=== PATIENT | female | born 1995 | race Caucasian/White ===

== ENCOUNTER 2025-03-28 23:25 | Emergency (ER) | payer OTHER, SELFPAY ==
[2025-03-28 23:29] VITALS: BP 121/91; PULSE 102; RESP 16; TEMP 37.1; O2SAT 99; BMI 28.7
[2025-03-28 23:32] LABS: Hematocrit 32.7 % (37.0-47.0); Hemoglobin 10.6 g/dL (12.2-16.2); Immature Granulocytes % 0.2 %; Mean Corpuscular HGB Conc 32.4 g/dL (31.8-35.4); Mean Corpuscular Hemoglobin 26.7 pg (27.0-31.2); Mean Corpuscular Volume 82.4 fl (81-99); Nucleated Red Blood Cells % 0 %; Platelet Count 244 K/mm3 (142-424); Red Blood Count 3.97 M/mm3 (4.20-5.40); Red Cell Distribution Width-SD 42.2 fL; White Blood Count 6.1 K/mm3 (4.8-10.8)
--- NOTE | 2025-03-28 23:40 | XR_ITS ---
PROCEDURE INFORMATION: Exam: XR Chest Exam date and time: 03/29/2025 12:08 AM Age: 29 years old Clinical indication: Other: Tachy; Additional info: Tachy, sz like activity TECHNIQUE: Imaging protocol: Radiologic exam of the chest. Views: 1 view. COMPARISON: No relevant prior studies available. FINDINGS: Lungs: Unremarkable. No consolidation. Pleural spaces: Unremarkable. No pleural effusion. No pneumothorax. Heart/Mediastinum: Unremarkable. No cardiomegaly. Bones/joints: Unremarkable. IMPRESSION: No acute findings.
--- NOTE | 2025-03-28 23:40 | HMH.EDGENADL ---
Discharge Plan Disposition Patient Disposition: Home, Self-Care Condition: Good Prescriptions Prescriptions: New ondansetron 4 mg tablet,disintegrating 4 mg PO Q6H PRN (Reason: nausea and vomiting) Qty: 10 0RF Referrals Follow up/Referrals: Clarence Lee MD [Staff Physician, Family Practice] - See instructions Referral Note: establish care, substance use Activity Restrictions/Add. Instructions Additional Instructions/Restrictions: You were evaluated in the ER and are believed to be appropriate for discharge at this time. personal support worker the prescriptions that were [facility] for you from [facility]. Take those as directed. Take the newly prescribed ondansetron (Zofran) if needed for nausea and vomiting. Drink plenty of water, Gatorade, Pedialyte to stay hydrated. Continue taking all home medications as previously prescribed. Make an appointment with your primary care doctor for reevaluation in 1 to 2 days. Follow-up with the MAT clinic. Ask your primary care doctor for a referral to neurology. Return to the ER with any new, worsening, or otherwise concerning symptoms. Clinical Impressions Clinical Impression: Seizure-like activity, Substance use disorder, Nausea & vomiting Instructions Patient Instructions: DI for Seizure Disorder in Adults, DI for Seizure (Not Epilepsy/Seizure Disorder), DI for Seizure Disorder in Child Print Language Print Language: South African Discharge ED Provider: Nayla Watts Adult HPI General Chief complaint: Seizure Stated complaint: Seizure Time Seen by Provider: 03/28/25 23:26 Mode of Arrival: EMS Source of Information: Patient Description of Symptoms (Recalled from ER Triage Doc. 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 History of Present Illness HPI narrative: 29-year-old female with history of substance abuse, self-reported recent relapse of amphetamine use, reported history of seizures previously on Lamictal presents to the ER with bodyaches, nausea, vomiting, cough, congestion, and self-reported seizure-like activity. Patient reports she was at [facility] in [place] because she relapsed on meth and they changed her meds from lamictal to vraylar. She was discharged earlier today and is worried that she is not tolerating it well. She reports adverse effects of abilify and latuda reporting her eyes roll back and she kind of shakes but it's not a full seizure like she sometimes has. She is aware of these happening when they occur and immediately is awake and back to normal after. She reports this is what happened to her prior to arrival. It lasted approximately one minute. She reports being out of her suboxone for 5 days and having 3 days of cough, congestion, nausea, vomiting, body aches. No known fevers. She has no abdominal pain, no chest pain or difficulty breathing, no numbness, tingling, or weakness. Separately, patient would like to have a test completed, she states she took 1 at home about a month ago that was positive but reports at her doctor it was not negative so she just is not sure. I reached out to [facility] in [place] and spoke with the data warehouse consultant to understand this patient's recent admission. He reports patient was admitted on 03/26 for methamphetamine use relapse. While admitted she received Suboxone doses including a dose this morning at 8 AM despite patient reporting she's not had it in multiple days. He reports that the patient was continued on a prescription for doxycycline for bacterial vaginosis, she was started on Lamictal and there was no change to her existing Vraylar prescription. Suboxone was not prescribed to the patient at the time of discharge. Patient reports she does have prescriptions for doxycycline and Lamictal to cloth picker at the pharmacy. Related Data Previous Rx's ?Medication ?Instructions ?Recorded ondansetron 4 mg disintegrating 4 mg PO Q6H PRN nausea and 03/29/25 tablet vomiting #10 tabs Allergies Allergy/AdvReac Type Severity Reaction Status Date / Time aripiprazole (From Abilify) Allergy Unknown Verified 03/28/25 23:36 allergy reaction lurasidone (From Latuda) Allergy Unknown Verified 03/28/25 23:36 allergy reaction metoclopramide (From Reglan) Allergy Unknown Verified 03/28/25 23:36 allergy reaction PFSH PFSH Disclaimer: The information contained in this section may have been updated after the patient was seen, as this information can be updated by other users. Social History Smoking Status: Current every day smoker alcohol intake: never current occupational status: unemployed Travel in the last 8 weeks?: None ROS Obtained: Yes Systems reviewed as appropriate & no additional complaints except as documented per HPI Physical Exam General General appearance: alert and in no apparent distress Head Head exam: atraumatic and normocephalic Eye Eye exam: Present PERRL and EOMI ENT ENT exam: Present mucous membranes moist Neck Neck exam: Present normal inspection and full ROM Chest Chest inspection: Present symmetric chest wall rise Respiratory Respiratory exam: Present normal lung sounds bilaterally; Absent respiratory distress, wheezes or stridor Cardiovascular Cardiovascular exam: Present regular rate and normal rhythm Abdominal Exam Abdominal exam: Present soft; Absent distention, tenderness, guarding or rebound Extremities Exam Extremities exam: Present full ROM and normal capillary refill; Absent tenderness or edema Back Exam Back exam: Present full ROM; Absent CVA tenderness (R) or CVA tenderness (L) Neurological Exam Neurological exam: Present alert, oriented X3, CN II-XII intact and normal gait; Absent motor sensory deficit Psychiatric Psychiatric exam: Present normal affect and normal mood Skin Skin exam: Present warm and dry Medical Decision Making Medical Records Medical records reviewed: Yes I reviewed the patient's medical records. Screening: Per USPSTF and CDC recommendations, given the prevalence of disease in our region, it is our hospital?s policy to screen for HIV and viral Hepatitis for all patients aged 18 and over and those with ongoing risk factors. MR Comment: Patient had encounter at [facility] on 02/24/2025 with concerns of abdominal cramping, burning sensation in the epigastrium, abnormal vaginal bleeding, patient was found to be mildly tachycardic during her ER visit but ended up leaving the ER AGAINST MEDICAL ADVICE. Patient had received IV fluids and labs that were performed during that encounter demonstrated no leukocytosis or anemia, prerenal azotemia, normal lipase. Patient was then seen the same day at [facility] and found to have normal troponin, mild anemia, prerenal azotemia, elevated anion gap. Note demonstrates that patient was presenting from sober living facility for intentional ingestion of methamphetamines. She did not have any physical complaints at that time. UDS was positive for amphetamines, buprenorphine. Again patient left that ER AMA after not receiving head CT citing concerns about things that happened back at her sober living facility. [facility] then [facility]. 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 As well as chlamydia. That note demonstrated patient had been using Suboxone for about 7 years and was ready to discontinue it . Patient had been taking Lyrica intermittently for back pain. Jose E Inquiry Pt receiving controlled substance: No Vital Signs: 03/28/25 23:29 03/29/25 01:14 Temperature 98.8 F 97.9 F Temperature Source Oral Oral Pulse Rate 89 Pulse Rate [Left] 102 H Respiratory Rate 16 16 Blood Pressure 122/73 Blood Pressure [Right Arm] 121/91 H Blood Pressure Mean [Right Arm] 101 Blood Pressure Source [Right Arm] Automatic Cuff 02 Sat by Pulse Oximetry 99 Oxygen Delivery Method Room Air Room Air Lab Data Lab Results 03/28/25 23:25: WBC 6.1, RBC 3.97 L, Hgb 10.6 L, Hct 32.7 L, MCV 82.4, MCH 26.7 L, MCHC 32.4, RDW 14.4, Plt Count 244, MPV 11.1 H, Neut % (Auto) 44.1, Lymph % (Auto) 44.9, Moody % (Auto) 7.6, Eos % (Auto) 2.5, Baso % (Auto) 0.7, Neut # (Auto) 2.7, Lymph # (Auto) 2.7, Moody # (Auto) 0.5, Eos # (Auto) 0.2, Baso # (Auto) 0.0, PT 11.0, INR 0.99, Sodium 133 L, Potassium 4.5, Chloride 97 L, Carbon Dioxide 28, Anion Gap 12.5, BUN 17, Creatinine 0.60, Estimated Creat Clear 158, Estimated GFR 120, Est GFR ( Amer) 145, Glucose 66 L, Calcium 9.8, Total Bilirubin 0.4, AST 21, ALT 16, Alkaline Phosphatase 41, Troponin I < 0.01, Total Protein 6.9, Albumin 4.4, Globulin 2.5, Albumin/Globulin Ratio 1.8, HCG, Quant < 2, Plasma/Serum Alcohol < 10, HCV Ab PO w/Rflx PCR Qn Negative, HIV Ag/Ab Combo Qual Negative 03/29/25 00:30: Urine Color Yellow, Urine Appearance Cloudy, Urine pH 8.0, Ur Specific [place] 1.020, Urine Protein Negative, Urine Glucose (UA) Negative, Urine Ketones Negative, Urine Blood Negative, Urine Nitrate Negative, Urine Bilirubin Negative, Urine Urobilinogen 0.2, Ur Leukocyte Esterase Negative, Urine RBC None, Urine WBC None, Ur Squamous Epith Cells None, Amorphous Sediment 3+, Urine Bacteria 3+, Urine Opiates Screen Negative, Urine Methadone Screen Negative, Ur Barbituates Screen Negative, Ur Phencyclidine Scrn Negative, Ur Amphetamines Screen Negative, U Benzodiazepines Scrn Negative, Urine Cocaine Screen Negative, U Marijuana (THC) Screen Negative 03/28/25 23:25 03/28/25 23:25 Orders (Tests/Meds): ED MEDICATIONS Discontinued Medications Generic Name Dose Route Start Last Admin Trade Name Freq PRN Reason Stop Dose Admin Lactated Ringer's 1,000 mls @ 999 mls/hr 03/28/25 23:26 03/29/25 01:09 Lactated Ringer's 1000 Ml Bag IV 03/29/25 00:26 Infused .Q1H1M ONE Infusion ORDERS Category Date Time Status Consult Science Writer [CONS] Routine Cons 03/28/25 23:50 Active CXR --portable [XR chest portable] Stat Exams 03/28/25 23:40 Completed CBC w/Auto Diff [Complete Blood Count Auto Diff] Stat Lab 03/28/25 23:25 Completed CMP [Comprehensive Metabolic Panel] Stat Lab 03/28/25 23:25 Completed Ethanol [Ethyl Alcohol] Stat Lab 03/28/25 23:25 Completed HCG,Quantitative Stat Lab 03/28/25 23:25 Completed HIV Combo Stat Lab 03/28/25 23:25 Completed Hepatitis C Ab Qual. W/ RFX Stat Lab 03/28/25 23:25 Completed PT INR [Prothrombin Time INR] Stat Lab 03/28/25 23:25 Completed Trop I [Troponin I] Stat Lab 03/28/25 23:25 Completed UDS [Drug Screen,Urine] Stat Lab 03/29/25 00:30 Completed Urinalysis and Microscopic Stat Lab 03/29/25 00:30 Completed Urine Chlam/Gono/Trich ([facility]) Stat Lab 03/28/25 23:50 Received Urine Culture Stat Micro 03/29/25 00:30 Received ECG Request Stat Y 03/28/25 23:40 Ordered Medical Decision Narrative: In summary, this 29-year-old female with comorbidities described in the HPI presents to the emergency department today with multiple complaints including self-reported seizure-like activity, nausea, vomiting, body aches. On initial evaluation patient is hemodynamically stable, afebrile, GCS 15, no neurologic deficits or abnormalities, cardiopulmonary exam benign, benign abdominal exam with no tenderness, rebound, or guarding, extremities normal, remainder of exam benign. Differential diagnosis includes but is not limited to viral syndrome, seizure, seizure-like activity, electrolyte abnormality, medication noncompliance, Suboxone withdrawal was considered but patient has in fact received doses of it in the last few days while she was hospitalized, I considered dehydration, urinary tract infection, cardiac abnormality, I did also consider malingering since patient reports not receiving her Suboxone though she was receiving it at our [facility] while hospitalized including earlier today. I did very briefly consider the possibility of endocarditis with history of substance abuse but patient has no chest pain or difficulty breathing, no peripheral edema, no fevers. Based on these concerns, I ordered hematologic and serum labs, urinalysis, UDS, alcohol level, hCG, troponin, cardiac workup, chest x-ray. ECG personally interpreted demonstrates normal sinus rhythm, rate 78, normal axis, normal AR and QTc, no STEMI. Patient received IV fluids for treatment. She had already received Zofran from EMS and is already drinking Sprite in the ER. Labs personally reviewed demonstrate no leukocytosis, anemia mild with hemoglobin 10.6 is nonactionable at this time, platelets normal, PT/INR normal, CMP nonactionable though it does demonstrate hypoglycemia, patient is actively tolerating oral intake and repeat fingerstick is normal. UA negative for findings of infection, UDS negative for all analytes, EtOH negative, test negative. XR personally interpreted demonstrates no acute thoracic abnormality, see radiology read for final interpretation. Patient was irritated that I was not giving her her Suboxone dose after hearing from the other hospital that she had received earlier today. She states she is feeling better and would like to be discharged. I did prescribe ondansetron for outpatient management of nausea. Her benign abdominal exam is very reassuring in the setting of unremarkable labs and I do not believe she requires further abdominal workup at this time. She has not had any seizure-like activity here and I have low suspicion that her seizure-like activity was true seizure given the way she described and the fact she was completely aware of it with no postictal period. I have higher suspicion in that situation for nonepileptic seizure-like activity. Since she reports a history of seizures and this was potentially a breakthrough seizure if a seizure at all, I do not believe she requires intracranial imaging and can follow-up with neurology. She reports she has her seizure medications at home and is taking them as prescribed which I encouraged her to continue doing. Patient was instructed to take the prescriptions that were recently prescribed after her discharge from the other hospital. She is understanding and agreeable to this. She is appropriate for discharge at this time and comfortable with this plan. She states she does not have a primary care doctor so I referred her to Dr. Lee. She is going to follow up with her MAT provider as well. I placed a consult to peer support for this patient also. Patient was given instructions on symptomatic management, follow up instructions, and return precautions for the emergency department. Patient indicated understanding and was discharged in stable condition. Critical Care Critical Care Time Critical Care Time: No
[2025-03-28 23:41] LABS: Alanine Aminotransferase 16 U/L (12-78); Albumin Level 4.4 g/dl (3.5-5.0); Albumin/Globulin Ratio 1.8 (1.1-1.8); Alkaline Phosphatase 41 U/L (38-126); Anion Gap 12.5 mEq/L (5-15); Aspartate Amino Transferase 21 U/L (14-36); Bilirubin,Total 0.4 mg/dl (0.2-1.3); Blood Urea Nitrogen 17 mg/dl (7-17); Calcium 9.8 mg/dl (8.4-10.2); Carbon Dioxide 28 mmol/L (22.0-30.0); Chloride 97 mmol/L (98-107); Creatinine Clearance Estimated 158 mL/min (50-200); Creatinine,Serum 0.60 mg/dl (0.52-1.04); Estimated Glomerular Filt Rate 120 ml/min (>60); GFR (African American) 145 ML/MIN (>60); Globulin 2.5 g/dL (1.3-3.2); Glucose 66 mg/dl (74-100); Potassium 4.5 mmoL/L (3.5-5.1); Sodium 133 mmol/L (136-145); Total Protein,Serum 6.9 g/dl (6.3-8.2)
[2025-03-28 23:52] LABS: INR 0.99 (0.9-1.1); Prothrombin Time 11.0 seconds (10.1-12.5)
[2025-03-29] MEDS: LACTATED RINGERS 1000ML 1,000 ML 999 ML IV (00:02)
--- NOTE | 2025-03-29 00:06 | ECG_ITS ---
APPROVED REPORT Exam: Resting ECG HR:78 bpm ECG Measurements Heart Rate 78 AXES ME 143 P 79 QRSd 76 QRS 81 QT 355 T 77 QTc 389 Conclusion SINUS RHYTHM NORMAL ECG Electronically signed by : CHICHO ANDERSON, 03/29/2025 07:57:34
[2025-03-29 00:26] LABS: Troponin I < 0.01 ng/ml (0.00-0.034)
[2025-03-29 00:43] LABS: Microscopic, Urine URINE MICROSCOPIC (MICROSCOPIC)
[2025-03-29 00:46] LABS: Bilirubin,Urine Negative (Negative); Color,Urine YELLOW (Yellow); Glucose,Urine (UA) Negative (Negative); Ketones,Urine Negative (Negative); Leukocyte Esterase,Urine Negative (Negative); PH,Urine 8.0 (5.0-8.5); Protein,Urine Negative (Negative); Specific Gravity, Urine 1.020 (1.005-1.030); Urobilinogen,Urine 0.2 EU/dl (0.2)
[2025-03-29 00:46] LABS: Hepatitis C Ab Qual. W/ RFX NEGATIVE (Negative)
[2025-03-29 00:58] LABS: Benzodiazepines Screen,Urine Negative ng/ml (<200)
[2025-03-29 00:59] LABS: Amphetamine/Metha Screen,Urine Negative ng/ml (<1000); Barbiturates Screen,Urine Negative ng/ml (<200)
[2025-03-29 01:01] LABS: Methadone Screen,Urine Negative ng/ml (<300)
[2025-03-29 01:02] LABS: Amorphous Sediment,Urine 3+ /lpf; Bacteria,Urine 3+ /lpf; Opiate Screen,Urine Negative ng/ml (<300)
[2025-03-29 01:03] LABS: Phencyclidine Screen,Urine Negative ng/ml (<25)
[2025-03-29 01:14] VITALS: BP 122/73; PULSE 89; RESP 16; TEMP 36.6; O2SAT 98
--- NOTE | 2025-03-29 07:59 | PC.NURSE ---
face sheet for EMS
--- NOTE | 2025-03-29 13:53 | PEERSUPPORT ---
Peer Support Note Patient Information Patient Information: DOS: 03/29/2025 ? ED Ps Consult ? Ps contacted pt via number in chart ? Pt reported she is feeling? better, she says she has been doing better with her recovery then had a relapse. She stated she is with her sponsor now, and receiving support and accountability. She also has a an appointment for therapy at 11 am. ? -Awaiting a bed at sober living facility in [place], [place] so she can be closer to her kids. ? Ps shared personal experience to situation for understanding and hope. ? Pt receptive and accepting of treatment referrals as well as contact for ongoing recovery focused support. ? Plan of action: -Refrain from alcohol and/or drug use. -Take medications as prescribed. -Attend therapy appointment -Ps follow up on 04/01/2025
== END 2025-03-29 01:20 | disposition home or self-care (01) ==
PROVIDERS: Emergency Provider Emergency Medicine
DX: R56.9 Unspecified convulsions (principal); R11.2 Nausea with vomiting, unspecified; F17.210 Nicotine dependence, cigarettes, uncomplicated; F19.10 Other psychoactive substance abuse, uncomplicated
CPT/HCPCS: 71045; 80053; 80307; 80320; 81001; 84484; 84702; 85025; 85610; 86803; 87086; 87389; 87491; 87591; 87661; 93005; 96360; 99284; J7120